=== PATIENT | male | born 1945 | race Caucasian/White ===

== ENCOUNTER 2016-10-19 10:45 | Emergency (ER) | payer BC ==
[2016-10-19 11:32] LABS: Hematocrit 45 % (42-52); Hemoglobin 15.2 g/dl (14.0-18.0); Mean Corpuscular HGB Conc 34 g/dl (31-36); Mean Corpuscular Hemoglobin 30 pg (27-31); Mean Corpuscular Volume 89 fL (80-94); Mean Platelet Volume 8 um3 (7.4-10.4); Red Blood Count 5.03 10^6/ul (4.0-5.4); Red Cell Distribution Width 13 % (10.5-15); White Blood Count 11.4 10^3/ul (3.5-10.8)
[2016-10-19 11:37] LABS: Add Diff/Slide Review? Slide Review Added; Comments Flag Yes
[2016-10-19 11:50] LABS: Calcium 9.1 mg/dL (8.6-10.3); EGFR Non-African American 73.9 (>60); Globulin 2.9 g/dL (2-4); Magnesium 1.8 mg/dL (1.9-2.7); Potassium 4.6 mmol/L (3.5-5.0); Total Bilirubin 0.8 mg/dL (0.2-1.0); Total Protein 6.9 g/dL (6.4-8.9)
[2016-10-19] MEDS: NS 0.9% 1000 ML* 2,000 ML IV ONE ×2 (11:51→13:19)
[2016-10-19 11:52] LABS: Troponin I 0.01 ng/mL (<0.04)
[2016-10-19 12:27] LABS: TSH (Thyroid Stimulating Horm) 1.93 mcIU/mL (0.34-5.60)
[2016-10-19 14:20] VITALS: BP 117/53
--- NOTE | 2016-10-19 14:44 | ED ---
Shilo Macias Billy, scribed for Hebert Singh MD on 10/19/16 at 1107 . Syncope/Near Syncope - HPI Summary HPI Summary: Patient is a 71 year-old male coming to [facility] from [facility] [place] evaluation of N/V/ D and syncope today. Patient states that he felt normal last night, but awoke at 0300 this morning with diarrhea. He had 2 more episodes of diarrhea afterwards. At approximately 0630, his heard a "thud" in the bathroom and found the patient on the floor. The patient states that he had felt dizzy and diaphoretic before losing consciousness; he does not remember his finding him on the floor. His helped him back to bed, at which time he felt chills and abdominal cramping. They visited [facility] [place] evaluation of his symptoms, where he had another syncopal episode accompanied with nausea and vomiting in the waiting room. The patient has had cold-like symptoms for the last several days. - History Of Current Complaint Chief Complaint: EDSyncope Time Seen by Provider: 10/19/16 10:59 Hx Obtained From: Patient Onset/Duration: Gradual Onset Context: Unwitnessed - in the bathroom, Witnessed - in the [facility] waiting room, Loss Of Consciousness Activity At Onset: At Rest Aggravating Factor(s): Nothing Alleviating Factor(s): Spontaneous Resolution Associated Signs And Symptoms: Diaphoresis, Dizzy, Vomiting, Other - nausea, abdominal cramping, diarrhea, chills - Allergies/Home Medications Allergies/Adverse Reactions: Allergies Allergy/AdvReac Type Severity Reaction Status Date / Time No Known Allergies Allergy Verified 10/19/16 11:51 PMH/Surg Hx/FS Hx/Imm Hx Endocrine/Hematology History: Reports: Hx Diabetes - type 2 diabetes, controlled Cardiovascular History: Denies: Hx Hypertension, Hx Myocardial Infarction Infectious Disease History: No Infectious Disease History: Denies: Traveled Outside the [place] in Last 30 Days - Family History Known Family History: Positive: Other - breast cancer (sisters) Family History: Pulmonary fibrosis in the lungs (father) - Social History Alcohol Use: Occasionally Substance Use Type: Reports: None Smoking Status (MU): Never Smoked Tobacco Review of Systems Positive: Chills, Skin Diaphoresis Positive: Abdominal Pain, Vomiting, Diarrhea, Nausea Neurological: Other - dizzy Positive: Syncope All Other Systems Reviewed And Are Negative: Yes Physical Exam Triage Information Reviewed: Yes Vital Signs On Initial Exam: Initial Vitals Temp Pulse Resp BP Pulse Ox 99.2 F 68 16 131/57 99 10/19/16 10:57 10/19/16 10:57 10/19/16 10:57 10/19/16 10:57 10/19/16 10:57 Vital Signs Reviewed: Yes Appearance: Positive: Well-Appearing, No Pain Distress Skin: Positive: Warm, Skin Color Reflects Adequate Perfusion, Dry Head/Face: Positive: Normal Head/Face Inspection Eyes: Positive: Normal ENT: Positive: Other - Dry mucous membranes. Neck: Positive: Supple, Nontender Respiratory/Lung Sounds: Positive: Clear to Auscultation, Breath Sounds Present Cardiovascular: Positive: RRR Abdomen Description: Positive: Nontender, Soft Musculoskeletal: Positive: Normal Neurological: Positive: Normal Psychiatric: Positive: Normal, Affect/Mood Appropriate AVPU Assessment: Alert - Maricel Coma Scale Coma Scale Total: 15 Diagnostics - Vital Signs Vital Signs Temp Pulse Resp BP Pulse Ox 10/19/16 10:57 99.2 F 68 16 131/57 99 - Laboratory Lab Results: Lab Results 10/19/16 10/19/16 10/19/16 Range/Units 11:15 11:15 11:15 WBC 11.4 H (3.5-10.8) 10^3/ul RBC 5.03 (4.0-5.4) 10^6/ul Hgb 15.2 (14.0-18.0) g/dl Hct 45 (42-52) % MCV 89 (80-94) fL MCH 30 (27-31) pg MCHC 34 (31-36) g/dl RDW 13 (10.5-15) % Plt Count 175 (150-450) 10^3/ul MPV 8 (7.4-10.4) um3 Neut % (Auto) 90.9 H (38-83) % Lymph % (Auto) 2.4 L (25-47) % [place] % (Auto) 6.1 (1-9) % Eos % (Auto) 0 (0-6) % Baso % (Auto) 0.6 (0-2) % Absolute Neuts (auto) 10.4 H (1.5-7.7) 10^3/ul Absolute Lymphs (auto) 0.3 L (1.0-4.8) 10^3/ul Absolute Monos (auto) 0.7 (0-0.8) 10^3/ul Absolute Eos (auto) 0 (0-0.6) 10^3/ul Absolute Basos (auto) 0.1 (0-0.2) 10^3/ul Absolute Nucleated RBC 0.01 10^3/ul Nucleated RBC % 0.1 Sodium 136 (133-145) mmol/L Potassium 4.6 (3.5-5.0) mmol/L Chloride 108 (101-111) mmol/L Carbon Dioxide 22 (22-32) mmol/L Anion Gap 6 (2-11) mmol/L BUN 14 (6-24) mg/dL Creatinine 1.00 (0.67-1.17) mg/dL Est GFR ( Amer) 95.0 (>60) Est GFR (Non-Af Amer) 73.9 (>60) BUN/Creatinine Ratio 14.0 (8-20) Glucose 163 H (70-100) mg/dL Lactic Acid 1.8 (0.5-2.0) mmol/L Calcium 9.1 (8.6-10.3) mg/dL Magnesium 1.8 L (1.9-2.7) mg/dL Total Bilirubin 0.80 (0.2-1.0) mg/dL AST 17 (13-39) U/L ALT 22 (7-52) U/L Alkaline Phosphatase 68 (34-104) U/L Troponin I 0.01 (<0.04) ng/mL Total Protein 6.9 (6.4-8.9) g/dL Albumin 4.0 (3.2-5.2) g/dL Globulin 2.9 (2-4) g/dL Albumin/Globulin Ratio 1.4 (1-3) TSH 1.93 (0.34-5.60) mcIU/mL Result Diagrams: 10/19/16 11:15 10/19/16 11:15 Lab Statement: Any lab studies that have been ordered have been reviewed, and results considered in the medical decision making process. Re-Evaluation - Re-Evaluation First Eval Re-Evaluation Time: 14:07 Change: Improved Course/Dx Course Of Treatment: Mr. Kye Rae presented to the ED after two syncopal epsiodes. He was awakened in the wee hours this AM by episodes of watery diarrhea and later nausea and vomiting. He is feeling a little bit better at this time. He felt hot and nauseated before both of his episodes. His W/U here is negative ad he feels a lot better after rehydration. I belive he has a ( probably viral) gastroenteritis. The combination of vagal symptoms and relative dehydration has lead to the two brief episodes. - Diagnoses Provider Diagnoses: Gastroenteritis, Vasovagal syncope Discharge - Discharge Plan Condition: Stable Disposition: HOME Patient Education Materials: Gastroenteritis (ED), Syncope (ED) Referrals: [facility] [Outside] The documentation as recorded by the Shilo hsieh Billy accurately reflects the service I personally performed and the decisions made by me, Hebert Singh MD.
== END 2016-10-19 14:20 | disposition home or self-care (01) ==
LOC: ED 10:45
DX: K52.9 Noninfective gastroenteritis and colitis, unspecified (principal); R55 Syncope and collapse; E11.9 Type 2 diabetes mellitus without complications
CPT/HCPCS: 36415; 80053; 83605; 83735; 84443; 84484; 85025; 96360; 99282